=== PATIENT | female | born 1990 | race American Indian/Alaskan Native ===

== ENCOUNTER 2017-09-05 10:32 | Emergency (ER) | payer OTHER ==
[2017-09-05 11:46] VITALS: BP 142/69
[2017-09-05 12:15] LABS: Basophils % (Auto) 1.1 % (0.0-1.8); Eosinophils % (Auto) 5.6 % (0.0-4.3); Hematocrit 47.7 % (30.3-42.9); Hemoglobin 15.8 gm/dl (10.1-14.3); Mean Corpuscular HGB Conc 33 % (30-34); Mean Corpuscular Hemoglobin 33 pg (28-32); Mean Corpuscular Volume 101 fl (79-97); Platelet Count 133 K/mm3 (140-440); Red Blood Count 4.73 M/mm3 (3.65-5.03); Red Cell Distribution Width 12.5 % (13.2-15.2)
[2017-09-05 12:28] LABS: Alanine Aminotransferase 11 units/L (7-56); Albumin 4.1 g/dL (3.9-5); Alkaline Phosphatase 53 units/L (35-129); Anion Gap 17 mmol/L; BUN/Creatinine Ratio 14; Blood Urea Nitrogen 13 mg/dL (7-17); Carbon Dioxide 26 mmol/L (22-30); Chloride 99.7 mmol/L (98-107); Glucose 93 mg/dL (65-100); Lipase 25 units/L (13-60); Potassium 4.4 mmol/L (3.6-5.0); Sodium 138 mmol/L (137-145); Total Protein 8.2 g/dL (6.3-8.2)
[2017-09-05] MEDS ORDERED: NACL 0.9% 1000 ML 1,000 ML IV ONE (14:57)
--- NOTE | 2017-09-05 14:57 | Emergency Department Report ---
HPI - General Chief Complaint: Abdominal Pain Time Seen by Provider: 09/05/17 14:04 - HPI HPI: This is a 26 year-old female presents to the emergency department, driving herself in to be seen, with complaint of a 2 week history of some left lower quadrant abdominal pain. It is associated with some more recent nausea and vomiting, although the patient does not have any other symptoms at this time. She denies any diarrhea, dysuria, vaginal discharge. She is concerned as she is 4 days late for her menstrual cycle which was last on August 06. She did not take anything for her symptoms prior to presentation. She does not have an GENETIC COUNSELLOR and does not have a primary care physician. Recent travel or sick contacts at home. She denies any past mental history. She has a surgical history of previous hernia repair. ED Past Medical Hx - Past Medical History Previous Medical History?: No - Surgical History Past Surgical History?: No Additional Surgical History: hernia repair - Social History Smoking Status: Current Some Day Smoker ED Review of Systems ROS: Stated complaint: ABDOMINAL PAIN Other details as noted in HPI Comment: All other systems reviewed and negative Constitutional: denies: chills, fever Eyes: denies: eye pain, eye discharge, vision change ENT: denies: ear pain, throat pain Respiratory: denies: cough, shortness of breath, wheezing Cardiovascular: denies: chest pain, palpitations Gastrointestinal: abdominal pain, nausea, vomiting Genitourinary: denies: urgency, dysuria, discharge Musculoskeletal: denies: back pain, joint swelling, arthralgia Skin: denies: rash, lesions Neurological: denies: headache, weakness, paresthesias Physical Exam - Physical Exam Vital Signs: Vital Signs 09/05/17 09/05/17 09/05/17 11:43 11:44 14:10 Temperature 98.4 F 99.2 F 98.2 F Pulse Rate 77 100 H 70 Respiratory 16 20 16 Rate Blood Pressure 147/91 142/69 O2 Sat by Pulse 100 100 Oximetry Physical Exam: GENERAL: The patient is well-developed well-nourished. HENT: Normocephalic. Atraumatic. Patient has moist mucous membranes. EYES: Extraocular motions are intact. Pupils equal reactive to light bilaterally. NECK: Supple. Trachea is midline. CHEST/LUNGS: Clear to auscultation. There is no respiratory distress noted. HEART/CARDIOVASCULAR: Regular. There is no tachycardia. There is no gallop rub or murmur. ABDOMEN: Abdomen is soft. Mild left lower quadrant tenderness to palpation. No guarding or rebound tenderness. Patient has normal bowel sounds. There is no abdominal distention. SKIN: Skin is warm and dry. NEURO: The patient is awake, alert, and oriented. The patient is cooperative. The patient has no focal neurologic deficits. The patient has normal speech and gait. MUSCULOSKELETAL: There is no tenderness or deformity. There is no limitation range of motion. There is no evidence of acute injury. ED Course Vital Signs 09/05/17 09/05/17 09/05/17 11:43 11:44 14:10 Temperature 98.4 F 99.2 F 98.2 F Pulse Rate 77 100 H 70 Respiratory 16 20 16 Rate Blood Pressure 147/91 142/69 O2 Sat by Pulse 100 100 Oximetry ED Medical Decision Making - Lab Data Result diagrams: 09/05/17 11:56 09/05/17 11:56 - Medical Decision Making 26-year-old female presents with concern that she is 4 days late for her menstrual cycle as well as a couple weeks of left lower quadrant abdominal pain. So far her labs have been unremarkable including no leukocytosis, normal belly labs and a serum that is negative. I spoke and examine the patient and told her that the plan would be for a abdominal x-ray, urinalysis and further evaluation. She agreed to this plan but after I left the room the patient eloped from the emergency Department without any further imaging, testing, evaluations or any discharge instructions. - Differential Diagnosis diverticulitis, , fibroids, colitis Critical Care Time: No Critical care attestation.: If time is entered above; I have spent that time in minutes in the direct care of this critically ill patient, excluding procedure time. ED Disposition Clinical Impression: Left lower quadrant abdominal pain of unknown etiology Disposition: Z- ELOPED Is pt being admited?: No Condition: Stable Instructions: Abdominal Pain (ED) Referrals: PRIMARY CARE [Primary Care Provider] - 3-5 Days Time of Disposition: 13:19
== END 2017-09-05 15:06 | disposition left against medical advice (07) ==
LOC: ED 10:32
DX: R10.32 Left lower quadrant pain (principal); R11.2 Nausea with vomiting, unspecified; F17.210 Nicotine dependence, cigarettes, uncomplicated
CPT/HCPCS: 36415; 80053; 83690; 84703; 85025; 99283

== ENCOUNTER 2019-10-20 22:20 | Emergency (ER) | payer OTHER ==
[2019-10-21] MEDS ORDERED: IBUPROFEN 600 MG TAB PO ONE (02:54)
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
[2019-10-21 07:37] VITALS: BP 122/78
== END 2019-10-21 03:05 | disposition home or self-care (01) ==
LOC: ED 22:20
DX: S16.1XXA Strain of muscle, fascia and tendon at neck level, initial encounter (principal); S46.911A Strain of unspecified muscle, fascia and tendon at shoulder and upper arm level, right arm, initial encounter; Z87.891 Personal history of nicotine dependence; X58.XXXA Exposure to other specified factors, initial encounter; Y93.89 Activity, other specified; Y92.488 Other paved roadways as the place of occurrence of the external cause; Y99.8 Other external cause status
CPT/HCPCS: 99282

== ENCOUNTER 2020-10-15 13:42 | Emergency (ER) | payer SELFPAY | END 2020-10-15 18:56 | LOC: ED 13:42 | DX: Z20.2 Contact with and (suspected) exposure to infections with a predominantly sexual mode of transmission (principal); Z53.21 Procedure and treatment not carried out due to patient leaving prior to being seen by health care provider ==